=== PATIENT | male | born 2000 | race African-American/Black ===

== ENCOUNTER 2021-01-11 13:06 | Emergency (ER) | payer SELFPAY ==
[~2021-01-11] VITALS: Ht 177.8 cm; Wt 77.3 kg
[~2021-01-11 13:06] MED LIST: HYDROXYZ HCL25 MG PO; TAMIFLU OR; ZITHROMAX250 MG PO
[2021-01-11 13:10] VITALS: BP 121/75
[2021-01-11] MEDS ORDERED: CEPHALEXIN500 MG PO (13:19)
== END 2021-01-11 13:47 | disposition home or self-care (01) | DRG 605 ==
LOC: ED 13:06
DX: S91.332A Puncture wound without foreign body, left foot, initial encounter (principal); S91.331A Puncture wound without foreign body, right foot, initial encounter; F17.290 Nicotine dependence, other tobacco product, uncomplicated; W45.0XXA Nail entering through skin, initial encounter; Y93.83 Activity, rough housing and horseplay; Y92.008 Other place in unspecified non-institutional (private) residence as the place of occurrence of the external cause

== ENCOUNTER 2021-04-05 19:20 | Emergency (ER) | payer SELFPAY ==
[~2021-04-05] VITALS: Ht 175.3 cm; Wt 77.0 kg
[~2021-04-05 19:20] MED LIST changes: +CEPHALEXIN500 MG PO
[2021-04-05] MEDS ORDERED: PERMETHRIN5 % EX (20:21)
[2021-04-05 20:22] VITALS: BP 115/64
== END 2021-04-05 20:45 | disposition home or self-care (01) | DRG 607 ==
LOC: ED 19:20
DX: B86 Scabies (principal); F17.200 Nicotine dependence, unspecified, uncomplicated